=== PATIENT | male | born 1995 | race Caucasian/White ===

== ENCOUNTER 2018-08-09 16:53 | Emergency (ER) ==
[2018-08-09] MEDS ORDERED: Adacel (T-DAP) 0.5 ML VIAL ONE (17:02)
[2018-08-09] MEDS ORDERED: Morphine 10 MG/ML VIAL ONE (17:02)
[2018-08-09] MEDS ORDERED: Bacitracin Zinc 1 Packet ONE (19:10)
[2018-08-09] MEDS ORDERED: HYDROcodone/Acetaminophen 10/325 mg Tablet ONE (19:17)
[2018-08-09] MEDS ORDERED: Ibuprofen 800 MG TAB ONE (19:18)
[2018-08-09] MEDS ORDERED: Cephalexin 500 MG CAP ONE (19:18)
--- NOTE | 2018-08-09 20:00 | RAD ---
THREE VIEWS LEFT THUMB: 08/09/18 HISTORY: Left thumb injury. Laceration of the left thumb by glass. There is no evidence of a fracture, dislocation, or other osseous abnormality. No radiopaque foreign body is seen on provided images. There is slight soft tissue irregularity seen between the index fing er and thumb which may be related to laceration. IMPRESSION: 1. Laceration between the index finger and thumb. No obvious radiopaque foreign body is seen. 2. No evidence of a fracture. POS: [facility]
[2018-08-09] MEDS ORDERED: Sodium Chloride Irrig Solution 250 ML BOT ONE (23:28)
[2018-08-09] MEDS ORDERED: Sterile Water Irrigation 250 ML BOT ONE (23:28)
== END 2018-08-09 19:27 | disposition home or self-care (01) ==
LOC: MADERS 16:53
DX: S61.412A Laceration without foreign body of left hand, initial encounter (principal); F17.220 Nicotine dependence, chewing tobacco, uncomplicated; Z23 Encounter for immunization; W25.XXXA Contact with sharp glass, initial encounter
CPT/HCPCS: 90715; J2270